=== PATIENT | female | born 1955 | race Caucasian/White ===

== ENCOUNTER 2016-03-22 13:50 | Emergency (ER) | payer MEDICAID ==
[~2016-03-22] VITALS: Ht 165.1 cm; Wt 85.3 kg
[2016-03-22 14:48] VITALS: BP 204/119
== END 2016-03-22 14:48 | disposition home or self-care (01) ==
LOC: ER 13:52
DX: H54.42 Blindness, left eye, normal vision right eye (principal); H53.9 Unspecified visual disturbance; I10 Essential (primary) hypertension; K58.9 Irritable bowel syndrome, unspecified
CPT/HCPCS: 99283; A4606; Z7610

== ENCOUNTER 2019-07-11 11:38 | Emergency (ER) | payer MEDICARE, MEDICAID ==
[~2019-07-11] VITALS: Ht 162.6 cm; Wt 78.9 kg
--- NOTE | 2019-07-11 12:04 | NUR ---
BIBS TO ER BED 7. AAOX4. NOT IN RESP DISTRESS, BREATHING EVEN AND UNLBAORED. AMBULATORY. CAME IN FOR CHEST HEAVINESS ON HER MID LEFT CHEST THAT STARTED 2 DAYS AGO AND FATIGUE. PT REPORTS THAT YESTERDAY SHE HAD AN EPISODE OF L ARM NUMBNESS WHICH IS RESOLVED ALREADY. PT ALSO STATES THAT THE CHEST HEAVINESS IS AGGREVATED BY WALKING AND GOING UP THE STAIRS. LUNG SOUNDS ARE CLEAR. PLACED ON MONITOR. MD AT BEDSIDE FOR EVAL. AWAITING ORDERS
[2019-07-11] MEDS ORDERED: ASPIRIN 81 MG TAB.CHEW ONE ×2 (12:21→14:04)
[2019-07-11] MEDS ORDERED: ASPIRIN 81 MG TAB.CHEW PO ONE (12:30)
[2019-07-11 12:38] LABS: BASOPHILS % (AUTO) 0.8 % (0.0-2.0); EOSINOPHILS % (AUTO) 3.5 % (0.0-6.0); HEMATOCRIT 38 % (33-45); HEMOGLOBIN 12.7 g/dL (11.5-14.8); LYMPHOCYTES # (AUTO) 1.5 /CMM (0.8-4.8); LYMPHOCYTES % (AUTO) 30.9 % (20.0-44.0); MEAN CORPUSCULAR HGB CONC 33 g/dl (31.0-36.0); MEAN CORPUSCULAR VOLUME 96 fL (82-100); MONOCYTES # (AUTO) 0.4 /CMM (0.1-1.30); NEUTROPHILS # (AUTO) 2.6 /CMM (1.8-8.9); NEUTROPHILS % (AUTO) 55.8 % (43.0-81.0); PLATELET COUNT (AUTO) 259 /CMM (150-450); RED BLOOD CELL COUNT(AUTO) 3.99 MIL/uL (4.0-5.2); WHITE BLOOD COUNT (AUTO) 4.7 K/uL (4.3-11.0)
[2019-07-11 12:55] LABS: CALCIUM, SERUM 9.3 mg/dL (8.5-10.1); CARBON DIOXIDE 28 mmol/L (21-32); CHLORIDE 105 mmol/L (98-107); CREATININE 1.8 mg/dL (0.6-1.3); GLUCOSE 153 mg/dL (74-106); POTASSIUM 5.2 mmol/L (3.5-5.1); SODIUM SERUM 140 mmol/L (136-145); UREA NITROGEN, BLOOD 55 mg/dL (7-18)
[2019-07-11 12:58] LABS: B-TYPE NATRIURETIC PEPTIDE 104 PG/ML (0-125)
--- NOTE | 2019-07-11 13:43 | NUR ---
PAGED DR. MARTINEZ.
[2019-07-11] MEDS ORDERED: ACETAMINOPHEN ES 500 MG TABLET ONE (14:26)
[2019-07-11] MEDS ORDERED: ACETAMINOPHEN 325 MG TABLET PO ONE (14:30)
[2019-07-11 14:37] VITALS: BP 66/109
--- NOTE | 2019-07-11 14:37 | NUR ---
Patient discharged to home in stable condition. Written and verbal after care instructions given. Patient verbalizes understanding of instruction.IV removed. Catheter intact and site benign. Pressure and 4x4 applied to site. No bleeding noted.Pt ambulatory with a steady gait
== END 2019-07-11 14:42 | disposition home or self-care (01) ==
LOC: ER 11:38
DX: R07.89 Other chest pain (principal); R06.02 Shortness of breath; K58.9 Irritable bowel syndrome, unspecified
CPT/HCPCS: 36415; 71045-TC; 80048-TC; 83880; 84484-TC; 85025-TC